=== PATIENT | male | born 1980 | race American Indian/Alaskan Native ===

== ENCOUNTER 2024-09-16 15:17 | Inpatient (IN) | payer OTHER, MEDICAID, SELFPAY ==
[2024-09-16] VITALS (7 sets, daily range): BP systolic 113–137; BP diastolic 63–83; PULSE 56–60; RESP 15–18; TEMP 36.4–36.8; O2SAT 95–96; BMI 34.7; BMI 35.4
--- NOTE | 2024-09-16 15:34 | PC.NURSE ---
BIBA; per report, pt coming in for vomiting blood x1 hour; pt states he was coughing when he filled the sink with red blood. Pt has hx of esophageal varices and had bands placed 5 months ago. Pt also has hx of CHF. Pt connected to monitors at this time.
[2024-09-16 16:20] LABS: Basophils # (Auto) 0.1 Thou/mm3 (0.0-0.2); Basophils % (Auto) 1 % (0-2.5); Eosinophils # (Auto) 0.5 Thou/mm3 (0.0-0.5); Eosinophils % (Auto) 9 % (0-10); Hematocrit 38.1 % (41.0-53.0); Immature Granulocytes % (Auto) 0 % (0-0); Immature Granulocytes Auto 0.01 Thou/mm3 (0.00-0.00); Lymphocytes # (Auto) 1.6 Thou/mm3 (1.0-4.8); Lymphocytes % (Auto) 31 % (10-50); Mean Corpuscular HGB Conc 34.1 g/dl (31.0-37.0); Mean Corpuscular Hemoglobin 28.4 pg (25.0-35.0); Mean Corpuscular Volume 83 fL (80-100); Monocytes # (Auto) 0.5 Thou/mm3 (0.0-0.8); Monocytes % (Auto) 10 % (0-12); Neutrophils # (Auto) 2.6 Thou/mm3 (1.8-7.7); Neutrophils % (Auto) 49 % (37-80); Nucleated Red Blood Cell % 0 /100 WBC (0); Platelet Count 150 Thou/mm3 (140-440); RDW Standard Deviation 46.2 fL (35.1-43.9); Red Blood Count 4.58 Miln/mm3 (4.50-5.90); White Blood Count 5.3 Thou/mm3 (3.8-10.6)
[2024-09-16 16:38] LABS: INR 1.2 (0.9-1.3); Partial Thromboplastin Time 31.7 Seconds (22.0-36.0)
[2024-09-16] MEDS: PANTOPRAZOLE/NS 80MG IV PREMIX 80 MG/100 ML BAG 400 MG IV (16:38)
[2024-09-16] MEDS: cefTRIAXone/D5w 1gm IV premix 50 ML IV (16:40)
[2024-09-16 16:41] LABS: Alanine Aminotransferase 25 U/L (10-49); Albumin, Serum 4.3 gm/dL (3.5-5.0); Albumin/Globulin Ratio 1.2 (1.2-2.2); Alkaline Phosphatase 130 U/L (46-116); Anion Gap 10 (7-16); Aspartate Amino Transferase 47 U/L (0-34); BUN/Creatinine Ratio 13 Ratio (12-20); Bilirubin,Total 1.4 mg/dL (0.3-1.2); Blood Urea Nitrogen 20 mg/dL (9-23); Calcium 9.5 mg/dL (8.3-10.6); Calcium (Corrected) 9.5 mg/dL (8.5-10.1); Carbon Dioxide 22.7 mMol/L (20.0-31.0); Chloride 107 mMol/L (98-107); Creatinine (Component) 1.6 mg/dL (0.6-1.3); Estimated Creatinine Clearance 68.7 mL/min (>60); Globulin 3.7 gm/dL (2.3-3.5); Glucose 97 mg/dL (74-106); Osmolality,Calculated 282 (275-295); Potassium 3.7 mMol/L (3.4-5.1); Sodium 140 mMol/L (136-145); eGFR 54 See Note
--- NOTE | 2024-09-16 16:48 | PD.EDGIBLD ---
ED GI Bleed RME/HPI General Chief complaint: GI Bleed Stated complaint: VOMITING BLOOD Time Seen by Provider: 09/16/24 15:44 Arrival date/time: 09/16/24 15:17 RME / HPI RME / HPI Narrative: 44 y/o known esophageal varices first and most recent banding was in April [address] Orourke who presents with spontaneous hiccup/cough this was followed up with a brisk amount of bright red blood. He states that since bleeding is decreased but initially he did feel the bottom of the sink and here has bruise about 10% of a blue emesis bag. He denies abdominal pain. He denies melena or bright red blood per rectum. Related Data Home Medications ?Medication ?Instructions ?Recorded ?Confirmed carvedilol 6.25 mg tablet (Coreg) 6.25 mg PO BID #60 tabs 08/09/16 07/15/24 furosemide 20 mg tablet (Lasix) 20 mg PO QAM PRN Edema 05/08/24 07/15/24 hydroxyzine HCl 25 mg tablet 25 mg PO QID 05/08/24 07/15/24 metoclopramide HCl 5 mg tablet 5 mg PO 4XD 05/08/24 07/15/24 pantoprazole 40 mg tablet,delayed 40 mg PO QDAY 05/08/24 07/15/24 release propranolol 10 mg tablet 10 mg PO 3XD 05/08/24 07/15/24 triamcinolone acetonide 0.5 % See Rx Instructions .Route .COMPLEX 05/08/24 07/15/24 topical ointment cholestyramine (with sugar) 4 gram 1 ea PO QDAY 07/15/24 07/15/24 powder for susp in a packet ferrous sulfate 325 mg (65 mg 325 mg PO QDAY 07/15/24 07/15/24 iron) tablet,delayed release gabapentin 300 mg capsule 300 mg PO HS 07/15/24 07/15/24 venlafaxine 37.5 mg 37.5 mg PO QDAY 07/15/24 07/15/24 capsule,extended release 24 hr Allergies Allergy/AdvReac Type Severity Reaction Status Date / Time No Known Allergies Allergy Verified 07/15/24 10:11 Review of Systems Review of Systems Systems Reviewed: All systems reviewed, normal except as documented ED Exam Narrative Physical exam: GENERAL APPEARANCE: AxOx4, generally well-appearing, no acute distress. HEENT: NC, AT. MMM. EOMI, clear conjunctiva, oropharynx clear. NECK: Supple without lymphadenopathy. No stiffness or restricted ROM. HEART: Normal rate and regular rhythm, normal S1/S1, no m/r/g LUNGS: CTAB, moving air well. No crackles or wheezes are heard. ABDOMEN: Soft, nontender, nondistended with good bowel sounds heard. BACK: No midline C/T/L spine pain or deformity, No CVAT, no obvious deformity. EXTREMITIES: Without cyanosis, clubbing or edema. MUSCULOSKELETAL: FROM of all major joints, no chest tenderness NEUROLOGICAL: Grossly nonfocal. Alert and oriented, moving all 4 extremities. CN not formally tested but appear grossly intact. Observed to ambulate with normal gait. Skin: Warm and dry without any rash. Course Quality Measures none Orders Category Date Time Status Consult to Gastroenterology Stat Cons 09/16/24 15:53 Ordered CBC Stat Lab 09/16/24 15:40 Completed CMP [Comprehensive Metabolic Panel] Stat Lab 09/16/24 15:40 Completed Partial Thromboplastin Time Stat Lab 09/16/24 15:40 Completed Prothrombin Time with INR Stat Lab 09/16/24 15:40 Completed Type and Screen Stat Lab 09/16/24 15:40 Received Octreotide Acet Inj [SandoSTATIN Inj] Med 09/16/24 15:58 Discontinued 50 mcg IV X1 ONE Pantoprazole/Ns 80Mg IV Premix [Protonix/NS 80mg IV Med 09/16/24 15:59 Active Premix] 80 mg in 100 ml IV Q10H Pantoprazole/Ns 80Mg IV Premix [Protonix/NS 80mg IV Med 09/16/24 15:59 Discontinued Premix] 80 mg in 100 ml IV X1 Sodium Chloride 0.9% [Ns] 100 ml Med 09/16/24 15:59 Active Octreotide Acet Inj [SandoSTATIN Inj] 1,000 mcg IV 50 mcg/hr cefTRIAXone/D5w 1gm IV premix [Rocephin/D5w 1gm IV Med 09/16/24 15:58 Discontinued premix] 50 ml IV X1 Vital Signs Vital signs: Vital Signs Temperature 97.8 F 09/16/24 15:25 Pulse Rate 59 L 09/16/24 15:25 Respiratory Rate 16 09/16/24 15:25 Blood Pressure 137/83 H 12/05/24 15:25 Pulse Oximetry (%) 96 09/16/24 15:25 Oxygen Delivery Method Room Air 09/16/24 15:25 SpO2 96% on room air, patient is not hypoxic GI Bleed MDM Narrative MDM Narrative:: Mr. Negro presents to the emergency department with hematemesis in the setting of having known esophageal varices. This is concerning for catastrophic bleeding as esophageal varices would be consistent with having portal hypertension. As a result I feel he would benefit from an admission with aggressive treatment to decrease portal pressures including IV Sandostatin and also decrease gastric acid secretion with proton pump inhibitors. Case was discussed with gastroenterology who agrees with this plan and will plan for EGD tomorrow. Laboratory testing was sent primarily to determine the extent of bleeding, and returned with a normal hemoglobin at 13. Remainder labs were noncontributory. In review of source of his portal hypertension patient does admit to cirrhosis secondary to excessive alcohol consumption in the past. He states he is been sober since the beginning of the year when he was diagnosed with cirrhosis and portal hypertension. Patient data External records reviewed:: [facility] previous records Clinical information provided by:: patient Social determinants that could affect healthcare access:: none Patient has the following chronic illnesses:: Cirrhosis How is presenting disease/condition affected by chronic disease/condition?: caused by Evaluation data The following diagnostics were reviewed and interpreted by me:: lab results Lab and/or radiology exams considered but not ordered:: None Interpretation Summary: As per narrative Medications / Prescriptions Medications or Prescriptions considered but not ordered:: None Medication administrations:: Medication Administration History Pantoprazole Sodium (Protonix/Ns 80mg Iv Premix) 80 mg in 100 mls @ 10 mls/hr IV Q10H JUAN Stop: 09/19/24 13:58 Last Admin: 09/16/24 16:53 Dose: 10 mls/hr Documented By: Octreotide Acetate 1,000 mcg/ (Sodium Chloride) 102 mls @ 5.1 mls/hr IV .Q20H JUAN; Protocol Stop: 09/21/24 15:59 Last Admin: 09/16/24 17:07 Dose: 50 mcg/hr, 5.1 mls/hr Documented By: Discontinued Medications Pantoprazole Sodium (Protonix/Ns 80mg Iv Premix) 80 mg in 100 mls @ 400 mls/hr IV X1 ONE Stop: 09/16/24 16:13 Last Infusion: 09/16/24 16:53 Dose: Infused Documented By: Admin: 09/16/24 16:38 Dose: 400 mls/hr Documented By: DEVAUGHN Ceftriaxone Sodium/Dextrose (Rocephin/D5w 1gm Iv Premix) 50 mls @ 100 mls/hr IV X1 ONE Stop: 09/16/24 16:27 Last Infusion: 09/16/24 17:04 Dose: Infused Documented By: [facility] Admin: 09/16/24 16:40 Dose: 100 mls/hr Documented By: DEVAUGHN Octreotide Acetate (Octreotide Acet Inj 50 Mcg/Ml Vial) 50 mcg IV X1 ONE Stop: 09/16/24 15:59 Last Admin: 09/16/24 17:06 Dose: 50 mcg Documented By: DEVAUGHN Above Consultations Consultation(s) initiated? (list below): Yes Consultation #1 (Physician, Specialty, Details): Gastroenterology, Dr. Orourke, case was discussed at length and recommends IV Sandostatin, proton pump inhibitor, with plan for EGD tomorrow morning. Time: 04:30 Diagnosis GI bleed differential diagnosis: esophageal varices, gastritis, Ita-Delgado syndrome and Upper gastrointestinal hemorrhage Most likely diagnosis given after review of the tests above:: See below Admission Indicated Admission indicated?: indicated Admission Request Was there a request for admission?: Yes Admission Attestation Admission request attestation: Discussed case with [Dr. Booth] from Hospitalist service regarding admission. Discussed patients ED course, exam findings, labs, and radiology results. The Hospitalist [agrees] to accept the patient for admission. Disposition Plan Disposition Plan: Admit Critical Care Time Critical Care Time Critical Care Time: Yes Total Critical Care Time (min.): 35 Attestation: Excluding billable procedures for the rapid response, analysis, management, treatment, deliberation with specialist, and documentation to prevent the very possible risk of cardiovascular decompensation or . Discharge Plan Plan Patient Disposition: Admit Acute Care w/in Hospital Prescriptions/Referrals Prescriptions/Med Rec: No Action carvedilol [Coreg] 6.25 MG tablet 6.25 mg PO BID Qty: 60 furosemide [Lasix] 20 mg Tablet 20 mg PO QAM PRN (Reason: Edema) triamcinolone acetonide 0.5 % ointment See Rx Instructions .ROUTE .COMPLEX Patient Comments: APPLY THIN LAYER TOPICALLY TO THE AFFECTED AREA TWICE DAILY Rx Instructions: apply a thin layer topically to the affected area twice a day propranolol 10 mg tablet 10 mg PO 3XD Patient Comments: TAKE 1 TABLET BY MOUTH THREE TIMES DAILY metoclopramide HCl 5 mg tablet 5 mg PO 4XD Patient Comments: TAKE 1 TABLET BY MOUTH 30 MINUTES BEFORE MEALS AND AT BEDTIME pantoprazole 40 mg tablet,delayed release (DR/EC) 40 mg PO QDAY Patient Comments: TAKE 1 TABLET BY MOUTH EVERY DAY hydroxyzine HCl 25 mg tablet 25 mg PO QID Hold Instructions: Resume on 07/16/24. Patient Comments: TAKE 1 TABLET BY MOUTH EVERY 4 TO 6 HOURS NEEDED FOR ITCHING venlafaxine 37.5 mg capsule,extended release 24hr 37.5 mg PO QDAY Patient Comments: TAKE 1 CAPSULE BY MOUTH EVERY DAY WITH FOOD gabapentin 300 mg capsule 300 mg PO HS Patient Comments: TAKE 1 CAPSULE BY MOUTH EVERY NIGHT AT BEDTIME ferrous sulfate 325 mg (65 mg iron) tablet,delayed release (DR/EC) 325 mg PO QDAY Patient Comments: TAKE 1 TABLET BY MOUTH TWICE A DAY WITH FOOD AND ORANGE JUICE cholestyramine (with sugar) 4 gram powder in packet 1 ea PO QDAY Patient Comments: DISSOLVE 1 PACKET IN 2-6 OZ OF WATER OR NONCARBONATED AND DRINK BY MOUTH TWICE DAILY BEFORE MEALS Referrals: Johana Blakely MD [Primary Care Provider] - In 1 week Problem List Clinical Impression: GI bleed, Cirrhosis Patient/Caregiver Discharge Instructions Print Language: Greenlandic Stand Alone Forms: [facility] Award Info., Patient Portal Info Letter
[2024-09-16] MEDS: PANTOPRAZOLE/NS 80MG IV PREMIX 80 MG/100 ML BAG 10 MG IV (16:53)
--- NOTE | 2024-09-16 17:05 | PC.NURSE ---
hospitalist in to talk with pt
[2024-09-16] MEDS: OCTREOTIDE ACET INJ 50 mCg/ML VIAL IV (17:06)
[2024-09-16] MEDS: OCTREOTIDE ACET INJ 1,000 MCG in SODIUM CHLORIDE 0.9% 100 ML 5.1 MCG IV (17:07)
--- NOTE | 2024-09-16 17:48 | ESHP_ITS ---
<Statement entered by Geoffrey Servin MD - 09/17/24 07:53> Patient was seen and examined by me personally. I agree with most of the assessment and plan as discussed with the mechanical intern physician, and my attending, Dr. De Jesus. 44y/o M with cirrhosis, esophageal varices s/p banding in April 2024 who presents with hematemesis after a coughing episode. Patient denies drinking alcohol or other substance abuse. Vitals, labs reviewed. Hgb stable at 13, with no further bleeding. Type/Screen done. GI consulted, recommends protonix/octreotide, and EGD in morning. Patient NPO. Geoffrey Servin MD, PGY-3 Documentation for date of: 09/16/24 HPI History of Present Illness Chief complaint: Hematemesis History of present illness: Patient is well-known to me, seen him recently in April A 44 yr old male with a past medical history of cirrhosis s/p variceal ligation in 04/2024, CKD, ex alcohol, stopped 6 months ago per patient and ex methamphetamine abuse came to the hospital with chief complaints of blood in the vomitus. Patient was apparently normal till this afternoon. Patient was sitting and then suddenly noted cough and irritation in the abdomen. Later he vomited around 50 mL of fresh bright red blood as described by the patient. Denies fever, abdominal pain, nausea, shortness of breath, pedal edema, abdominal distention. Stated that he abstained from the alcohol using his home medications, did not remember the name of the medications. Patient immediately came to the ED and still complaining of small amount of hematemesis. Denies blood or blackish discoloration of stools. Noted vomitus in the vomitus bag that showed bright red blood. ED Course: -Initial vitals were BP 137/83 mmHg, pulse rate 59/min, respiratory rate 16/min, temperature 97.8 ?F, SpO2 96% with room air. Physical examination remains unremarkable. -Labs significant for WBC 5.3, Hb 13, platelets 150, INR 1.2, APTT 31.7, sodium 140, potassium 3.7, BUN 20, creatinine 1.6, total bilirubin 1.4, AST 47, ALT 25, ALP 130. -In the ED, patient was given pantoprazole and started on octreotide drip -Patient was admitted for upper GI bleed secondary to esophageal varices due to decompensated liver disease Past medical history: Cirrhosis, s/p variceal ligation, CKD Past surgical history:Left knee surgery in view of ACL tear Social history: Stopped alcohol and meth abuse, still smoking 1 to 2 cigarettes/day Allergy history: No known allergies Review of Systems Constitutional Comments: Constitutional: No Weight Change, No Fever, No Chills, No Night Sweats, No Fatigue, No Malaise ENT/Mouth: No Hearing Changes, No Ear Pain, No Nasal Congestion, No Sinus Pain, No Hoarseness, No sore throat, No Rhinorrhea, No Swallowing Difficulty Eyes: No Eye Pain, No Swelling, No Redness, No Foreign Body, No Discharge, No Vision Changes Cardiovascular: No Chest Pain, No SOB, No PND, No Dyspnea on Exertion, No Orthopnea, No Edema, No Palpitations Respiratory: No Cough, No Sputum, No Wheezing, No Dyspnea Gastrointestinal: No Nausea, Vomiting, No Diarrhea, No Constipation, No Pain, No Heartburn, No Anorexia, No Dysphagia, No Hematochezia, No Melena, No Flatulence, No Jaundice Genitourinary: No Dysuria, No Urinary Frequency, No Hematuria, No Urinary Incontinence, No Urgency, No Flank Pain, No Urinary Flow Changes, No Hesitancy Musculoskeletal: No Arthralgias, No Myalgias, No Joint Swelling, No Joint Stiffness, No Back Pain, No Neck Pain, No Injury History Skin: No Skin Lesions, No Pruritis Neuro: No Weakness, No Numbness, No Paresthesias, No Loss of Consciousness, No Syncope, No Dizziness, No Headache, No Coordination Changes, No Recent Falls Exam Vital Signs Temp Pulse Resp BP Pulse Ox O2 Del Method 98.2 F 57 L 15 130/82 95 Room Air 09/16/24 17:30 09/16/24 17:30 09/16/24 17:30 09/16/24 17:30 09/16/24 17:30 09/16/24 17:30 Narrative Exam General: Awake and in no acute distress. HEENT: Normocephalic, atraumatic, mucous membranes moist. Heart: Regular rate and rhythm, no murmurs. Lungs: Clear to auscultation with no wheezing or crackles. Abdomen: Soft, nondistended, nontender, positive bowel sounds. ?No guarding or rebound tenderness. Neurologic: Alert and oriented x3, no gross neurological deficit, and patient able to move all 4 extremities. Extremities: No edema. Skin: No rash or ecchymoses. Results: Labs 09/17/24 05:22 09/17/24 05:22 Labs: Short CBC 09/16/24 Range/Units 15:40 WBC 5.3 (3.8-10.6) Thou/mm3 Hgb 13.0 L (13.5-16.0) g/dL Hct 38.1 L (41.0-53.0) % Plt Count 150 (140-440) Thou/mm3 BMP 09/16/24 15:40 Sodium 140 Potassium 3.7 Chloride 107 Carbon Dioxide 22.7 BUN 20 Creatinine 1.6 H Glucose 97 Calcium 9.5 Liver Function 09/16/24 Range/Units 15:40 Total Bilirubin 1.4 H (0.3-1.2) mg/dL AST 47 H (0-34) U/L ALT 25 (10-49) U/L Alkaline Phosphatase 130 H (46-116) U/L Albumin 4.3 (3.5-5.0) gm/dL Quality Measures Quality Measures none Medications Home Medications and Allergies Home Medications ?Medication ?Instructions ?Recorded ?Confirmed ?Type carvedilol 6.25 mg tablet (Coreg) 6.25 mg PO BID #60 tabs 08/09/16 07/15/24 History furosemide 20 mg tablet (Lasix) 20 mg PO QAM PRN Edema 05/08/24 07/15/24 History hydroxyzine HCl 25 mg tablet 25 mg PO QID 05/08/24 07/15/24 History metoclopramide HCl 5 mg tablet 5 mg PO 4XD 05/08/24 07/15/24 History pantoprazole 40 mg tablet,delayed 40 mg PO QDAY 05/08/24 07/15/24 History release propranolol 10 mg tablet 10 mg PO 3XD 05/08/24 07/15/24 History triamcinolone acetonide 0.5 % See Rx Instructions .Route .COMPLEX 05/08/24 07/15/24 History topical ointment cholestyramine (with sugar) 4 gram 1 ea PO QDAY 07/15/24 07/15/24 History powder for susp in a packet ferrous sulfate 325 mg (65 mg 325 mg PO QDAY 07/15/24 07/15/24 History iron) tablet,delayed release gabapentin 300 mg capsule 300 mg PO HS 07/15/24 07/15/24 History venlafaxine 37.5 mg 37.5 mg PO QDAY 07/15/24 07/15/24 History capsule,extended release 24 hr Allergies Allergy/AdvReac Type Severity Reaction Status Date / Time No Known Allergies Allergy Verified 07/15/24 10:11 Visit Medications Acetaminophen (Acetaminophen 325 Mg Tablet) 650 mg PO Q6H PRN PRN Reason: Fever >101.5 Stop: 10/16/24 17:20 Pantoprazole Sodium (Protonix/Ns 80mg Iv Premix) 80 mg in 100 mls @ 10 mls/hr IV Q10H JUAN Stop: 09/19/24 13:58 Last Admin: 09/16/24 16:53 Dose: 10 mls/hr Octreotide Acetate 1,000 mcg/ (Sodium Chloride) 102 mls @ 5.1 mls/hr IV .Q20H JUAN; Protocol Stop: 09/21/24 15:59 Last Admin: 09/16/24 17:07 Dose: 50 mcg/hr, 5.1 mls/hr Lactulose (Lactulose Syrup 20 Gm/30 Ml Udc) 20 gm PO X1 PRN; Protocol PRN Reason: CONSTIPATION Stop: 10/16/24 17:20 Pantoprazole Sodium (Pantoprazole Inj 40 Mg Vial) 40 mg IVP QDAY JUAN Stop: 10/17/24 08:59 Discontinued Medications Pantoprazole Sodium (Protonix/Ns 80mg Iv Premix) 80 mg in 100 mls @ 400 mls/hr IV X1 ONE Stop: 09/16/24 16:13 Last Infusion: 09/16/24 16:53 Dose: Infused Ceftriaxone Sodium/Dextrose (Rocephin/D5w 1gm Iv Premix) 50 mls @ 100 mls/hr IV X1 ONE Stop: 09/16/24 16:27 Last Infusion: 09/16/24 17:04 Dose: Infused Octreotide Acetate (Octreotide Acet Inj 50 Mcg/Ml Vial) 50 mcg IV X1 ONE Stop: 09/16/24 15:59 Last Admin: 09/16/24 17:06 Dose: 50 mcg Assessment & Plan Plan A 44 yr old male with a past medical history of cirrhosis s/p variceal ligation in 04/2024, CKD, ex alcohol, stopped 6 months ago per patient and ex methamphetamine abuse came to the hospital with chief complaints of blood in the vomitus. # History of decompensated alcoholic liver disease # History of esophageal varices-s/p variceal ligation # Upper GI bleed, hematemesis -Patient has a history of decompensated alcoholic liver disease with esophageal varices s/p variceal ligation in 04/2024 -Last hospital admission was in April 2024 for similar complaints. -Patient presented to the hospital with complaints of salena blood in the vomitus. -Denies abdominal distention, melena, hematochezia, fever, abdominal pain. -Reported that he is compliant with his home medications, but did not remember the name of medications. -In the ED, blood pressure is 137/83 mmHg, pulse rate 59 bpm, respiratory rate 16/min, temperature 97.8 ?F, SpO2 96% with room air -Hemoglobin is 13 at the time of presentation, platelet count is 150. INR is 1.2, APTT is 31.7, total bilirubin is 1.4, AST 47, ALT 25 -In the ED, patient was started on octreotide drip and pantoprazole drip Plan -Will continue octreotide and pantoprazole drip for now. -N.p.o. since midnight -Consulted Dr. Orourke and will appreciate his recommendations. -Will continue to monitor vitals and hemoglobin -Crossmatch showed O- blood # History of CKD, stage IIIa -Patient has a known history of chronic kidney disease -GFR is maintained between 55-60. -Patient is still at his normal baseline. -Denies changes in urine output. Plan -Will continue to monitor renal functions -Will renally dose medication and avoid nephrotoxic medications # Chronic smoker -Patient was smoking for about 10 to 15 years from now -Currently smoking 1 to 2 cigarettes/day -Counseled regarding the smoking cessation Hospital Maintenance: Dispo: Med/tele DVT ppx: SCD GI ppx: Protonix Diet: N.p.o. since midnight IV lines: Peripheral Code status: Full code Patient plan of care was discussed with the attending physician, Dr. De Jesus and senior resident Dr. Malathi Voss, PGY1 Attending Provider Attestation/Addendum I reviewed labs, imaging, EKG, home medications and prior available records. Face to face evaluation was performed by me. I have personally examined the patient and discussed assessment and plan with the IM team. I reviewed the resident note and agree with the plan with exceptions as below. 44-year-old male with history of alcoholic liver cirrhosis who presented with a chief complaint of hematemesis. He was found to have upper GI bleed. Upper GI bleed: In the setting of history of alcoholic cirrhosis. Started IV Protonix and IV octreotide. Consulted GI for EGD/colonoscopy. N.p.o. after midnight. Monitor H&H. Alcoholic cirrhosis: No recent alcohol drinking. Resume home medications. Outpatient follow-up with hepatology. CKD stage IIIa: Creatinine is close to baseline. Monitor kidney function. Avoid nephrotoxins. Renally dosed medications.
--- NOTE | 2024-09-16 18:03 | PC.NURSE ---
Dr. Kelechi De Jesus notified that pt's FSBS is 52 at this time; pt A&Ox4 GCS 15; per Dr. De Jesus, give pt orange juice and recheck FSBS in 30 minutes. Pt given orange juice at this time.
--- NOTE | 2024-09-16 20:33 | PC.NURSE ---
REPORT CALLED TO TRESSA BUSBY ALL QUESTIONS ASKED AND ANSWERED. PATIENT TRANSFERRED TO FLOOR BY STAFF. NO DISTRESS NOTED AT TRANSFER.
--- NOTE | 2024-09-16 20:42 | PD.IMCONS ---
HPI Data of Consult Requesting Physician: Nixon De Jesus MD Primary Care Provider: Johana Blakely MD Consult Narrative Reason for consult: Hematemesis History of present illness: 44 years old male admitted to the hospital with bout of hematemesis Initial admitting hemoglobin hematocrit 11 October 2013 0.0 and 38.1 with a platelet count 250,000 and a pro time INR 1.2 Total bilirubin is 1.4 AST ALT 47 and 25 and alk phos of 130 BUN/creatinine is 20 and 1.6 Patient has had alcohol induced chronic liver disease cirrhosis with hepatomegaly liver size 20.3 cm with fatty liver This ultrasound was done on 04/15/2024 cc:: cc: Nixon De Jesus MD Review of Systems Review of Systems Systems Reviewed: All systems reviewed, normal except as documented Past Medical History Surgical History OTHER SURGICAL HX: As in the history of present illness Meds Home Medications and Allergies Home Medications ?Medication ?Instructions ?Recorded ?Confirmed ?Type carvedilol 6.25 mg tablet (Coreg) 6.25 mg PO BID #60 tabs 08/09/16 07/15/24 History furosemide 20 mg tablet (Lasix) 20 mg PO QAM PRN Edema 05/08/24 07/15/24 History hydroxyzine HCl 25 mg tablet 25 mg PO QID 05/08/24 07/15/24 History metoclopramide HCl 5 mg tablet 5 mg PO 4XD 05/08/24 07/15/24 History pantoprazole 40 mg tablet,delayed 40 mg PO QDAY 05/08/24 07/15/24 History release propranolol 10 mg tablet 10 mg PO 3XD 05/08/24 07/15/24 History triamcinolone acetonide 0.5 % See Rx Instructions .Route .COMPLEX 05/08/24 07/15/24 History topical ointment cholestyramine (with sugar) 4 gram 1 ea PO QDAY 07/15/24 07/15/24 History powder for susp in a packet ferrous sulfate 325 mg (65 mg 325 mg PO QDAY 07/15/24 07/15/24 History iron) tablet,delayed release gabapentin 300 mg capsule 300 mg PO HS 07/15/24 07/15/24 History venlafaxine 37.5 mg 37.5 mg PO QDAY 07/15/24 07/15/24 History capsule,extended release 24 hr Allergies Allergy/AdvReac Type Severity Reaction Status Date / Time No Known Allergies Allergy Verified 07/15/24 10:11 Exam Vital Signs Temp Pulse Resp BP Pulse Ox O2 Del Method 97.7 F 58 L 16 116/74 96 Room Air 09/16/24 18:08 09/16/24 20:01 09/16/24 20:01 09/16/24 20:01 09/16/24 20:01 09/16/24 20:01 Constitutional Comments: Alert oriented Routine Respiratory Exam Comments: Normal to auscultation Routine Abdominal Exam Comments: Soft nontender Results Labs 09/16/24 15:40 09/16/24 15:40 Labs: Short CBC 09/16/24 Range/Units 15:40 WBC 5.3 (3.8-10.6) Thou/mm3 Hgb 13.0 L (13.5-16.0) g/dL Hct 38.1 L (41.0-53.0) % Plt Count 150 (140-440) Thou/mm3 BMP 09/16/24 15:40 Sodium 140 Potassium 3.7 Chloride 107 Carbon Dioxide 22.7 BUN 20 Creatinine 1.6 H Glucose 97 Calcium 9.5 Liver Function 09/16/24 Range/Units 15:40 Total Bilirubin 1.4 H (0.3-1.2) mg/dL AST 47 H (0-34) U/L ALT 25 (10-49) U/L Alkaline Phosphatase 130 H (46-116) U/L Albumin 4.3 (3.5-5.0) gm/dL Assessment and Plan Additional Assessment & Plan Additional Plan: # Acute upper GI bleed in the form of hematemesis in the setting of cirrhotic liver disease due to alcohol Plan Octreotide infusion at 50 mcg/h IV Protonix N.p.o. Serial CBC Consent obtained for fiberoptic esophagogastroduodenoscopy with possible therapeutic intervention possible biopsy under intravenous moderate sedation scheduled for tomorrow Thank you very much for the opportunity to participate in the care of this patient
[2024-09-17] VITALS (15 sets, daily range): BP systolic 116–154; BP diastolic 62–91; PULSE 48–59; RESP 12–19; TEMP 36.2–36.7; O2SAT 94–100
[2024-09-17] MEDS: PANTOPRAZOLE/NS 80MG IV PREMIX 80 MG/100 ML BAG 10 MG IV ×3 (01:44→23:10)
[2024-09-17] MEDS: DEXTROSE 50%-WATER INJ 50 ML SYRINGE 25 ML IV (01:45)
[2024-09-17 05:49] LABS: Basophils # (Auto) 0.1 Thou/mm3 (0.0-0.2); Basophils % (Auto) 1 % (0-2.5); Eosinophils # (Auto) 0.5 Thou/mm3 (0.0-0.5); Eosinophils % (Auto) 10 % (0-10); Hematocrit 38.3 % (41.0-53.0); Hemoglobin 12.7 g/dL (13.5-16.0); Immature Granulocytes % (Auto) 0 % (0-0); Immature Granulocytes Auto 0.01 Thou/mm3 (0.00-0.00); Lymphocytes # (Auto) 2.1 Thou/mm3 (1.0-4.8); Lymphocytes % (Auto) 37 % (10-50); Mean Corpuscular HGB Conc 33.2 g/dl (31.0-37.0); Mean Corpuscular Volume 85 fL (80-100); Monocytes # (Auto) 0.6 Thou/mm3 (0.0-0.8); Monocytes % (Auto) 10 % (0-12); Neutrophils # (Auto) 2.5 Thou/mm3 (1.8-7.7); Neutrophils % (Auto) 43 % (37-80); Nucleated Red Blood Cell % 0 /100 WBC (0); Platelet Count 136 Thou/mm3 (140-440); RDW Standard Deviation 46.2 fL (35.1-43.9); Red Blood Count 4.53 Miln/mm3 (4.50-5.90); White Blood Count 5.7 Thou/mm3 (3.8-10.6)
[2024-09-17 06:02] LABS: Glucose Estimated Average 111 mg/dL (80-131); Hemoglobin A1C 5.5 % Hgb (4.8-6.0)
[2024-09-17 06:37] LABS: Alanine Aminotransferase 23 U/L (10-49); Albumin, Serum 4.1 gm/dL (3.5-5.0); Albumin/Globulin Ratio 1.1 (1.2-2.2); Alkaline Phosphatase 111 U/L (46-116); Anion Gap 8 (7-16); Aspartate Amino Transferase 42 U/L (0-34); BUN/Creatinine Ratio 13 Ratio (12-20); Blood Urea Nitrogen 20 mg/dL (9-23); Calcium 9.4 mg/dL (8.3-10.6); Calcium (Corrected) 9.4 mg/dL (8.5-10.1); Carbon Dioxide 22.1 mMol/L (20.0-31.0); Chloride 108 mMol/L (98-107); Creatinine (Component) 1.5 mg/dL (0.6-1.3); Estimated Creatinine Clearance 74.1 mL/min (>60); Globulin 3.6 gm/dL (2.3-3.5); Glucose 99 mg/dL (74-106); Osmolality,Calculated 278 (275-295); Potassium 3.8 mMol/L (3.4-5.1); Sodium 138 mMol/L (136-145); Total Protein 7.7 gm/dL (5.7-8.2); eGFR 59 See Note
[2024-09-17] MEDS: PANTOPRAZOLE INJ 40 MG VIAL IVP (09:53)
--- NOTE | 2024-09-17 10:03 | PC.SS ---
Patient is alert/oriented. He was admitted for gi bleed. Patient states he resides with family on the [facility]. Patient is independent with ADL's. Patient is npo for endoscopy scheduled later today. Patient follows up with [facility] with Dr. Jackman and Dr. Blakely. Last appt. was 09/16/2024. Discharge address: [address] [place] [address]. Family will transport upon discharge. No further d/c needs. is alt medical decision maker; Nereyda Negro,
[2024-09-17] MEDS: OCTREOTIDE ACET INJ 1,000 MCG in SODIUM CHLORIDE 0.9% 100 ML 5.1 MCG IV (11:50)
--- NOTE | 2024-09-17 11:52 | ESPR_ITS ---
Documentation for date of: 09/17/24 Subjective Subjective Interval history: Patient was seen and examined bedside. Patient was on n.p.o. since midnight and denied further episodes of hematemesis. Pending endoscopy by Dr. Orourke which was scheduled later in the afternoon. Exam Vital Signs Temp Pulse Resp BP Pulse Ox O2 Del Method 98.0 F 59 L 19 118/72 96 Room Air 09/17/24 07:46 09/17/24 07:46 09/17/24 07:46 09/17/24 07:46 09/17/24 07:46 09/17/24 07:46 Narrative Exam General: Awake and in no acute distress. HEENT: Normocephalic, atraumatic, mucous membranes moist. Heart: Regular rate and rhythm, no murmurs. Lungs: Clear to auscultation with no wheezing or crackles. Abdomen: Soft, nondistended, nontender, positive bowel sounds. ?No guarding or rebound tenderness. Neurologic: Alert and oriented x3, no gross neurological deficit, and patient able to move all 4 extremities. Extremities: No edema. Skin: No rash or ecchymoses. Objective Labs 09/18/24 04:25 09/18/24 04:25 Labs: Laboratory Results - last 24 hr 09/16/24 09/17/24 15:40 05:22 WBC 5.3 5.7 RBC 4.58 4.53 Hgb 13.0 L 12.7 L Hct 38.1 L 38.3 L MCV 83 85 MCH 28.4 28.0 MCHC 34.1 33.2 RDW Std Deviation 46.2 H 46.2 H Plt Count 150 136 L Neut % (Auto) 49 43 Lymph % (Auto) 31 37 [place] % (Auto) 10 10 Eos % (Auto) 9 10 Baso % (Auto) 1 1 Neut # (Auto) 2.6 2.5 Lymph # (Auto) 1.6 2.1 [place] # (Auto) 0.5 0.6 Eos # (Auto) 0.5 0.5 Baso # (Auto) 0.1 0.1 Immature Gran # (Auto) 0.01 H 0.01 H Absolute Nucleated RBC 0.00 0.00 Immature Gran % 0 0 Nucleated RBC % 0 0 PT 13.0 H INR 1.2 APTT 31.7 Sodium 140 138 Potassium 3.7 3.8 Chloride 107 108 H Carbon Dioxide 22.7 22.1 Anion Gap 10 8 BUN 20 20 Creatinine 1.6 H 1.5 H Estim Creat Clear Calc 68.7 74.1 eGFR 54 L 59 L BUN/Creatinine Ratio 13 13 Glucose [address] Glu mg/dL 111 Hemoglobin A1c 5.5 Calculated Osmolality 282 278 Calcium 9.5 9.4 Corrected Calcium 9.5 9.4 Total Bilirubin 1.4 H 2.0 H D AST 47 H 42 H ALT 25 23 Alkaline Phosphatase 130 H 111 Total Protein 8.0 7.7 Albumin 4.3 4.1 Globulin 3.7 H 3.6 H Albumin/Globulin Ratio 1.2 1.1 L Blood Type O Positive Antibody Screen NEGATIVE Blood Bank Wristband ID Yes Quality Measures Quality Measures none Assessment & Plan Assessment Current Active Medications: Generic Name Dose Route Start Last Admin Trade Name Freq PRN Reason Stop Dose Admin Acetaminophen 650 mg 09/16/24 17:21 Acetaminophen 325 Mg Tablet PO 10/16/24 17:20 Q6H PRN Fever >101.5 Pantoprazole Sodium 80 mg in 100 mls @ 10 mls/hr 09/16/24 15:59 09/17/24 01:44 Protonix/Ns 80mg Iv Premix IV 09/19/24 13:58 10 mls/hr Q10H JUAN Administration Octreotide Acetate 1,000 mcg/ 102 mls @ 5.1 mls/hr 09/16/24 15:59 09/16/24 17:07 Sodium Chloride IV 09/21/24 15:59 50 mcg/hr .Q20H JUAN 5.1 mls/hr Administration Protocol 50 MCG/HR Lactulose 20 gm 09/16/24 17:21 Lactulose Syrup 20 Gm/30 Ml Udc PO 10/16/24 17:20 X1 PRN CONSTIPATION Protocol Plan A 44 yr old male with a past medical history of cirrhosis s/p variceal ligation in 04/2024, CKD, ex alcohol, stopped 6 months ago per patient and ex methamphetamine abuse came to the hospital with chief complaints of blood in the vomitus. # History of decompensated alcoholic liver disease with portal hypertension # History of esophageal varices-s/p variceal ligation # Upper GI bleed, hematemesis -Patient has a history of decompensated alcoholic liver disease with esophageal varices s/p variceal ligation in 04/2024 -Last hospital admission was in April 2024 for similar complaints. -Patient presented to the hospital with complaints of salena blood in the vomitus. -Denies abdominal distention, melena, hematochezia, fever, abdominal pain. -Reported that he is compliant with his home medications, but did not remember the name of medications. -In the ED, blood pressure is 137/83 mmHg, pulse rate 59 bpm, respiratory rate 16/min, temperature 97.8 ?F, SpO2 96% with room air -Hemoglobin is 13 at the time of presentation, platelet count is 150. INR is 1.2, APTT is 31.7, total bilirubin is 1.4, AST 47, ALT 25 -In the ED, patient was started on octreotide drip and pantoprazole drip Plan -Will continue octreotide and pantoprazole drip for now. -Consulted Dr. Orourke and scheduled for endoscopy this afternoon. -Will continue to monitor vitals and hemoglobin -Crossmatch showed O- blood # History of CKD, stage IIIa -Patient has a known history of chronic kidney disease -GFR is maintained between 55-60. -Patient is still at his normal baseline. -Denies changes in urine output. Plan -Will continue to monitor renal functions -Will renally dose medication and avoid nephrotoxic medications # Chronic smoker -Patient was smoking for about 10 to 15 years from now -Currently smoking 1 to 2 cigarettes/day -Counseled regarding the smoking cessation # Thrombocytopenia -Platelet count is 136 as of 09/17/2024. -Likely due to underlying liver disease. -Will continue to monitor CBC. Hospital Maintenance: Dispo: Med/tele DVT ppx: SCD GI ppx: Protonix Diet: N.p.o. till he undergoes endoscopy IV lines: Peripheral Code status: Full code Patient plan of care was discussed with the attending physician, Dr. De Jesus and senior resident Dr. Nino Voss, PGY1 L Mr Lopez is a 74-year-old male admitted for MrOtilio Wise is a 44-year-old male with past medical history of cirrhosis and band ligation of esophageal varices, due to alcohol use disorder quit 6 months ago, CKD and previous history of methamphetamine use, who is admitted to the hospital for acute hematemesis. He denies any melena/hematochezia or abdominal discomfort. Dr. Orourke is consulted, appreciate recommendations. Patient to be scheduled for EGD today 09/17 for further evaluation and possible ligation if needed. Currently n.p.o., coagulation panel and platelet count fairly within normal limits to undergo procedure. We will continue octreotide drip and pantoprazole until further GI recommendations. Patient examined and case discussed with the team including attending physician. Note reviewed, I agree with the care plan as documented. - Anoop Oneill MD, PGY 2 Attending Provider Attestation/Addendum I reviewed labs, imaging, EKG, home medications and prior available records. Face to face evaluation was performed by me. I have personally examined the patient and discussed assessment and plan with the IM team. I reviewed the resident note and agree with the plan with exceptions as below. 44-year-old male with history of alcoholic liver cirrhosis who presented with a chief complaint of hematemesis. He was found to have upper GI bleed. Upper GI bleed: In the setting of history of alcoholic cirrhosis. Started IV Protonix and IV octreotide. Consulted GI for EGD/colonoscopy. N.p.o. prior to EGD. Monitor H&H. Alcoholic cirrhosis: No recent alcohol drinking. Resume home medications. Outpatient follow-up with hepatology. CKD stage IIIa: Creatinine is close to baseline. Monitor kidney function. Avoid nephrotoxins. Renally dosed medications.
--- NOTE | 2024-09-17 19:20 | SUR.PHASEI ---
received pt and report from TRESSA Newton. Pt asleep at this time but arousable to voice and touch. VSS. HR sergio in th e50's, pt's baseline. no distress noted. [address], no s/s of infiltration or redness noted. will continue to monitor
--- NOTE | 2024-09-17 19:45 | SUR.PHASEI ---
pt recovering well, pt denies any cxp or dizziness, or sob. vss. HR con't to be in the 50's. Pt denies any pain or nausea. Report given to TRESSA Kline
[2024-09-18] VITALS (7 sets, daily range): BP systolic 112–127; BP diastolic 69–86; PULSE 52–70; RESP 17–19; TEMP 36.2–36.8; O2SAT 95–98; BMI 35.3
[2024-09-18 05:49] LABS: Basophils # (Auto) 0.1 Thou/mm3 (0.0-0.2); Basophils % (Auto) 1 % (0-2.5); Eosinophils # (Auto) 0.6 Thou/mm3 (0.0-0.5); Eosinophils % (Auto) 12 % (0-10); Hemoglobin 12.9 g/dL (13.5-16.0); Immature Granulocytes % (Auto) 0 % (0-0); Immature Granulocytes Auto 0.01 Thou/mm3 (0.00-0.00); Lymphocytes # (Auto) 1.7 Thou/mm3 (1.0-4.8); Lymphocytes % (Auto) 34 % (10-50); Mean Corpuscular HGB Conc 33.1 g/dl (31.0-37.0); Mean Corpuscular Volume 85 fL (80-100); Monocytes # (Auto) 0.6 Thou/mm3 (0.0-0.8); Monocytes % (Auto) 12 % (0-12); Neutrophils # (Auto) 2.1 Thou/mm3 (1.8-7.7); Neutrophils % (Auto) 41 % (37-80); Nucleated Red Blood Cell % 0 /100 WBC (0); Platelet Count 135 Thou/mm3 (140-440); RDW Standard Deviation 45.9 fL (35.1-43.9); Red Blood Count 4.61 Miln/mm3 (4.50-5.90)
[2024-09-18 06:23] LABS: Alanine Aminotransferase 21 U/L (10-49); Albumin, Serum 4.1 gm/dL (3.5-5.0); Albumin/Globulin Ratio 1.1 (1.2-2.2); Alkaline Phosphatase 105 U/L (46-116); Anion Gap 11 (7-16); Aspartate Amino Transferase 43 U/L (0-34); BUN/Creatinine Ratio 14 Ratio (12-20); Blood Urea Nitrogen 21 mg/dL (9-23); Calcium 9.5 mg/dL (8.3-10.6); Calcium (Corrected) 9.5 mg/dL (8.5-10.1); Carbon Dioxide 23.2 mMol/L (20.0-31.0); Chloride 105 mMol/L (98-107); Creatinine (Component) 1.5 mg/dL (0.6-1.3); Estimated Creatinine Clearance 74.1 mL/min (>60); Globulin 3.7 gm/dL (2.3-3.5); Glucose 126 mg/dL (74-106); Osmolality,Calculated 282 (275-295); Potassium 3.8 mMol/L (3.4-5.1); Sodium 139 mMol/L (136-145); Total Protein 7.8 gm/dL (5.7-8.2); eGFR 59 See Note
[2024-09-18] MEDS: PANTOPRAZOLE/NS 80MG IV PREMIX 80 MG/100 ML BAG 10 MG IV ×2 (09:46→19:48)
[2024-09-18] MEDS: OCTREOTIDE ACET INJ 1,000 MCG in SODIUM CHLORIDE 0.9% 100 ML 5.1 MCG IV (09:46)
--- NOTE | 2024-09-18 14:08 | ESPR_ITS ---
Documentation for date of: 09/18/24 Subjective Subjective Interval history: Patient status post band ligation of the esophageal varices On octreotide drip Exam Vital Signs Temp Pulse Resp BP Pulse Ox O2 Del Method O2 Flow Rate 97.9 F 61 18 123/69 97 Room Air 2 09/18/24 12:00 09/18/24 12:00 09/18/24 12:00 09/18/24 12:00 09/18/24 12:00 09/18/24 12:00 09/17/24 19:35 Objective Labs 09/19/24 05:19 09/19/24 05:19 Labs: Laboratory Results - last 24 hr 09/18/24 04:25 WBC 5.0 RBC 4.61 Hgb 12.9 L Hct 39.0 L MCV 85 MCH 28.0 MCHC 33.1 RDW Std Deviation 45.9 H Plt Count 135 L Neut % (Auto) 41 Lymph % (Auto) 34 [place] % (Auto) 12 Eos % (Auto) 12 H Baso % (Auto) 1 Neut # (Auto) 2.1 Lymph # (Auto) 1.7 [place] # (Auto) 0.6 Eos # (Auto) 0.6 H Baso # (Auto) 0.1 Immature Gran # (Auto) 0.01 H Absolute Nucleated RBC 0.00 Immature Gran % 0 Nucleated RBC % 0 Sodium 139 Potassium 3.8 Chloride 105 Carbon Dioxide 23.2 Anion Gap 11 BUN 21 Creatinine 1.5 H Estim Creat Clear Calc 74.1 eGFR 59 L BUN/Creatinine Ratio 14 Glucose 126 H Calculated Osmolality 282 Calcium 9.5 Corrected Calcium 9.5 Total Bilirubin 2.0 H AST 43 H ALT 21 Alkaline Phosphatase 105 Total Protein 7.8 Albumin 4.1 Globulin 3.7 H Albumin/Globulin Ratio 1.1 L Impressions Impression: # Hematemesis secondary to esophageal variceal bleeding status post band ligation of the esophageal varices Continue octreotide infusion Advance diet as tolerated Assessment & Plan A&P Narrative # Acute upper GI bleed in the form of hematemesis in the setting of cirrhotic liver disease due to alcohol Plan Octreotide infusion at 50 mcg/h IV Protonix N.p.o. Serial CBC Consent obtained for fiberoptic esophagogastroduodenoscopy with possible therapeutic intervention possible biopsy under intravenous moderate sedation scheduled for tomorrow Thank you very much for the opportunity to participate in the care of this patient Time Spent With Patient Time: Total time spent is greater than 50% in coordination of care (as documented) at patient's floor/unit and/or counseling patient:
--- NOTE | 2024-09-18 15:52 | ESPR_ITS ---
Documentation for date of: 09/18/24 Subjective Subjective Interval history: Patient was seen and examined bedside. Underwent EGD yesterday and found grade 2 esophageal varices which were ligated [1 band] by Dr. Orourke and recommended to continue octreotide drip for total 5 days since the day of hospital admission. Otherwise patient is doing okay denies further episodes of hematemesis. Exam Vital Signs Temp Pulse Resp BP Pulse Ox O2 Del Method O2 Flow Rate 97.9 F 61 18 123/69 97 Room Air 2 09/18/24 12:09/18/24 12:00 09/18/24 12:09/18/24 12:09/18/24 12:09/18/24 12:09/17/24 19:35 Narrative Exam General: Awake. Lying comfortably on the bed. HEENT: Normocephalic, atraumatic, mucous membranes moist. Heart: Regular rate and rhythm, no murmurs. Lungs: Clear to auscultation with no wheezing or crackles. Abdomen: Soft, nondistended, nontender, positive bowel sounds. ?No guarding or rebound tenderness. Neurologic: Alert and oriented x3, no gross neurological deficit, and patient able to move all 4 extremities. Extremities: No edema. Skin: No rash or ecchymoses. Objective Labs 09/19/24 05:19 09/19/24 05:19 Labs: Laboratory Results - last 24 hr 09/18/24 04:25 WBC 5.0 RBC 4.61 Hgb 12.9 L Hct 39.0 L MCV 85 MCH 28.0 MCHC 33.1 RDW Std Deviation 45.9 H Plt Count 135 L Neut % (Auto) 41 Lymph % (Auto) 34 [place] % (Auto) 12 Eos % (Auto) 12 H Baso % (Auto) 1 Neut # (Auto) 2.1 Lymph # (Auto) 1.7 [place] # (Auto) 0.6 Eos # (Auto) 0.6 H Baso # (Auto) 0.1 Immature Gran # (Auto) 0.01 H Absolute Nucleated RBC 0.00 Immature Gran % 0 Nucleated RBC % 0 Sodium 139 Potassium 3.8 Chloride 105 Carbon Dioxide 23.2 Anion Gap 11 BUN 21 Creatinine 1.5 H Estim Creat Clear Calc 74.1 eGFR 59 L BUN/Creatinine Ratio 14 Glucose 126 H Calculated Osmolality 282 Calcium 9.5 Corrected Calcium 9.5 Total Bilirubin 2.0 H AST 43 H ALT 21 Alkaline Phosphatase 105 Total Protein 7.8 Albumin 4.1 Globulin 3.7 H Albumin/Globulin Ratio 1.1 L Quality Measures Quality Measures none Assessment & Plan Assessment Current Active Medications: Generic Name Dose Route Start Last Admin Trade Name Haileq PRN Reason Stop Dose Admin Acetaminophen 650 mg 09/16/24 17:21 Acetaminophen 325 Mg Tablet PO 10/16/24 17:20 Q6H PRN Fever >101.5 Pantoprazole Sodium 80 mg in 100 mls @ 10 mls/hr 09/16/24 15:59 09/18/24 09:46 Protonix/Ns 80mg Iv Premix IV 09/19/24 13:58 10 mls/hr Q10H JUAN Administration Octreotide Acetate 1,000 mcg/ 102 mls @ 5.1 mls/hr 09/16/24 15:59 09/18/24 09:46 Sodium Chloride IV 09/21/24 15:59 50 mcg/hr .Q20H JUAN 5.1 mls/hr Administration Protocol 50 MCG/HR Lactulose 20 gm 09/16/24 17:21 Lactulose Syrup 20 Gm/30 Ml Udc PO 10/16/24 17:20 X1 PRN CONSTIPATION Protocol Plan A 44 yr old male with a past medical history of cirrhosis s/p variceal ligation in 04/2024, CKD, ex alcohol, stopped 6 months ago per patient and ex methamphetamine abuse came to the hospital with chief complaints of blood in the vomitus. # History of decompensated alcoholic liver disease with portal hypertension # History of esophageal varices-s/p variceal ligation # Upper GI bleed, hematemesis, resolved -Patient has a history of decompensated alcoholic liver disease with esophageal varices s/p variceal ligation in 04/2024 -Last hospital admission was in April 2024 for similar complaints. -Patient presented to the hospital with complaints of salena blood in the vomitus. -Denies abdominal distention, melena, hematochezia, fever, abdominal pain. -Reported that he is compliant with his home medications, but did not remember the name of medications. -In the ED, blood pressure is 137/83 mmHg, pulse rate 59 bpm, respiratory rate 16/min, temperature 97.8 ?F, SpO2 96% with room air -Hemoglobin is 13 at the time of presentation, platelet count is 150. INR is 1.2, APTT is 31.7, total bilirubin is 1.4, AST 47, ALT 25 -In the ED, patient was started on octreotide drip and pantoprazole drip -On 09/17/2024, patient underwent endoscopy by Dr. Orourke and grade 2 esophageal varices found, one banding was placed Plan -Will continue octreotide drip to complete 5 days course. -Started on clear liquid diet and will advance as tolerated. -Will continue to monitor vitals and hemoglobin -Crossmatch showed O- blood # History of CKD, stage IIIa -Patient has a known history of chronic kidney disease -GFR is maintained between 55-60. -Patient is still at his normal baseline. -Denies changes in urine output. Plan -Will continue to monitor renal functions -Will renally dose medication and avoid nephrotoxic medications -Recommended to follow-up with [facility] on outpatient basis # Chronic smoker -Patient was smoking for about 10 to 15 years from now -Currently smoking 1 to 2 cigarettes/day -Counseled regarding the smoking cessation # Thrombocytopenia -Platelet count is 136 as of 09/17/2024. -Likely due to underlying liver disease. -Will continue to monitor CBC. Hospital Maintenance: Dispo: Med/tele DVT ppx: SCD GI ppx: Protonix Diet: clear liquid, will advance as tolerated IV lines: Peripheral Code status: Full code Patient plan of care was discussed with the attending physician, Dr. De Jesus. Augustine Voss, PGY1 Attending Provider Attestation/Addendum I reviewed labs, imaging, EKG, home medications and prior available records. Face to face evaluation was performed by me. I have personally examined the patient and discussed assessment and plan with the IM team. I reviewed the resident note and agree with the plan with exceptions as below. 44-year-old male with history of alcoholic liver cirrhosis who presented with a chief complaint of hematemesis. He was found to have upper GI bleed. Upper GI bleed: In the setting of history of alcoholic cirrhosis. Started IV Protonix and IV octreotide. Consulted GI for EGD/colonoscopy. Status post EGD that showed grade 2 esophageal varices status post banding. GI recommended octreotide for 5 days. Monitor H&H. Alcoholic cirrhosis: No recent alcohol drinking. Resume home medications. Outpatient follow-up with hepatology. CKD stage IIIa: Creatinine is close to baseline. Monitor kidney function. Avoid nephrotoxins. Renally dosed medications.
[2024-09-18] MEDS: MELATONIN 3 MG TABLET PO (23:46)
[2024-09-19] VITALS (10 sets, daily range): BP systolic 113–129; BP diastolic 66–85; PULSE 58–74; RESP 16–18; TEMP 36.3–36.9; O2SAT 95–98
[2024-09-19 05:49] LABS: Basophils # (Auto) 0.1 Thou/mm3 (0.0-0.2); Basophils % (Auto) 1 % (0-2.5); Eosinophils # (Auto) 0.6 Thou/mm3 (0.0-0.5); Eosinophils % (Auto) 9 % (0-10); Hemoglobin 12.9 g/dL (13.5-16.0); Immature Granulocytes % (Auto) 0 % (0-0); Immature Granulocytes Auto 0.01 Thou/mm3 (0.00-0.00); Lymphocytes % (Auto) 29 % (10-50); Mean Corpuscular HGB Conc 33.9 g/dl (31.0-37.0); Mean Corpuscular Hemoglobin 28.7 pg (25.0-35.0); Mean Corpuscular Volume 84 fL (80-100); Monocytes # (Auto) 0.9 Thou/mm3 (0.0-0.8); Monocytes % (Auto) 13 % (0-12); Neutrophils # (Auto) 3.2 Thou/mm3 (1.8-7.7); Neutrophils % (Auto) 48 % (37-80); Nucleated Red Blood Cell % 0 /100 WBC (0); Platelet Count 151 Thou/mm3 (140-440); RDW Standard Deviation 46.3 fL (35.1-43.9); White Blood Count 6.7 Thou/mm3 (3.8-10.6)
[2024-09-19] MEDS: PANTOPRAZOLE/NS 80MG IV PREMIX 80 MG/100 ML BAG 10 MG IV (06:05)
[2024-09-19 06:18] LABS: Alanine Aminotransferase 24 U/L (10-49); Albumin, Serum 4.2 gm/dL (3.5-5.0); Albumin/Globulin Ratio 1.1 (1.2-2.2); Alkaline Phosphatase 114 U/L (46-116); Anion Gap 10 (7-16); Aspartate Amino Transferase 40 U/L (0-34); BUN/Creatinine Ratio 12 Ratio (12-20); Bilirubin,Total 1.3 mg/dL (0.3-1.2); Blood Urea Nitrogen 19 mg/dL (9-23); Calcium 9.4 mg/dL (8.3-10.6); Calcium (Corrected) 9.4 mg/dL (8.5-10.1); Chloride 107 mMol/L (98-107); Creatinine (Component) 1.6 mg/dL (0.6-1.3); Estimated Creatinine Clearance 69.4 mL/min (>60); Globulin 3.7 gm/dL (2.3-3.5); Glucose 92 mg/dL (74-106); Osmolality,Calculated 281 (275-295); Potassium 3.6 mMol/L (3.4-5.1); Sodium 140 mMol/L (136-145); Total Protein 7.9 gm/dL (5.7-8.2); eGFR 54 See Note
[2024-09-19] MEDS: OCTREOTIDE ACET INJ 1,000 MCG in SODIUM CHLORIDE 0.9% 100 ML 5.1 MCG IV (07:56)
[2024-09-19] MEDS: CYANOCOBALAMIN INJ 1,000 mCg/ML VIAL 1000 MCG IM (10:49)
[2024-09-19] MEDS: IRON SUCROSE CPLX INJ 20 MG/ML VIAL 5 ML 200 MG IVP (10:55)
[2024-09-19] MEDS: VIT B12/Vit C/FA (Nephrovite) TABLET 1 TAB PO (10:57)
--- NOTE | 2024-09-19 11:49 | ESPR_ITS ---
Documentation for date of: 09/19/24 Subjective Subjective Interval history: Patient was seen and examined bedside. Underwent EGD on 09/17 - s/p band ligation of grade 2 esophageal varices Per GI recommendations, will continue octreotide drip until tomorrow to complete 5 day course Patient is tolerating diet, advanced from CLD -> low sodium GERD/PUD. He denies any new episodes of hematemesis. Completed 7 bags of IV Protonix 80mg since admission. Will start Protonix 40mg BID from 2100 tonight, oral vitamin B12, FA and iron supplementation in preparation for discharge. He is ambulating around the room. No abdominal discomfort or nausea at this time. Patient counseled, is in agreement with treatment plan. Exam Vital Signs Temp Pulse Resp BP Pulse Ox O2 Del Method O2 Flow Rate 97.8 F 63 16 119/69 97 Room Air 2 09/19/24 11:32 09/19/24 11:32 09/19/24 11:32 09/19/24 11:32 09/19/24 11:32 09/19/24 11:32 09/17/24 19:35 Narrative Exam Constitutional Alert, oriented x4, Overweight HEENT Vision grossly intact. Patent nares. Trachea midline. Respiratory Chest normal on inspection and clear to auscultation bilaterally. Cardiovascular S1 and S2 audible, RRR. No murmurs or carotid bruit. No gross JVD. Abdominal Soft, minimal epigastric tenderness on deep palpation, all other quadrants are benign. BS + Genitourinary No bladder tenderness, no flank pain. Normal to palpation. Musculoskeletal Extremities tone within normal limits. No LE edema. Neurological CN II - XII grossly intact. Extremity motor and sensation grossly intact. Skin Warm, dry and intact. No apparent lesions. B/L UE tattoos. Psychiatric Patient has a good affect, is cooperative. Objective Labs 09/20/24 05:32 09/20/24 05:32 Labs: Laboratory Results - last 24 hr 09/19/24 05:19 WBC 6.7 RBC 4.50 Hgb 12.9 L Hct 38.0 L MCV 84 MCH 28.7 MCHC 33.9 RDW Std Deviation 46.3 H Plt Count 151 Neut % (Auto) 48 Lymph % (Auto) 29 [place] % (Auto) 13 H Eos % (Auto) 9 Baso % (Auto) 1 Neut # (Auto) 3.2 Lymph # (Auto) 2.0 [place] # (Auto) 0.9 H Eos # (Auto) 0.6 H Baso # (Auto) 0.1 Immature Gran # (Auto) 0.01 H Absolute Nucleated RBC 0.00 Immature Gran % 0 Nucleated RBC % 0 Sodium 140 Potassium 3.6 Chloride 107 Carbon Dioxide 23.0 Anion Gap 10 BUN 19 Creatinine 1.6 H Estim Creat Clear Calc 69.4 eGFR 54 L BUN/Creatinine Ratio 12 Glucose 92 Calculated Osmolality 281 Calcium 9.4 Corrected Calcium 9.4 Total Bilirubin 1.3 H D AST 40 H ALT 24 Alkaline Phosphatase 114 Total Protein 7.9 Albumin 4.2 Globulin 3.7 H Albumin/Globulin Ratio 1.1 L Quality Measures Quality Measures none Assessment & Plan Assessment Current Active Medications: Generic Name Dose Route Start Last Admin Trade Name Freq PRN Reason Stop Dose Admin Acetaminophen 650 mg 09/16/24 17:21 Acetaminophen 325 Mg Tablet PO 10/16/24 17:20 Q6H PRN Fever >101.5 Pantoprazole Sodium 80 mg in 100 mls @ 10 mls/hr 09/16/24 15:59 09/19/24 06:05 Protonix/Ns 80mg Iv Premix IV 09/19/24 13:58 10 mls/hr Q10H JUAN Administration Octreotide Acetate 1,000 mcg/ 102 mls @ 3.06 mls/hr 09/19/24 11:00 Sodium Chloride IV 10/19/24 10:59 .Q24H JUAN Protocol 30 MCG/HR Lactulose 20 gm 09/16/24 17:21 Lactulose Syrup 20 Gm/30 Ml Udc PO 10/16/24 17:20 X1 PRN CONSTIPATION Protocol Pantoprazole Sodium 40 mg 09/19/24 21:00 Pantoprazole Inj 40 Mg Vial IVP 10/19/24 20:59 BID JUAN Vitamin B Complex/Vit C/Folic Acid 1 tab 09/19/24 09:00 09/19/24 10:57 Vit B12/Vit C/Fa (Nephrovite) Tablet PO 10/19/24 08:59 1 tab QDAY JUAN Administration Plan Mr Negro is a 44 yr old male with a past medical history of cirrhosis s/p variceal ligation in 04/2024, CKD, ex alcohol, stopped 6 months ago per patient and ex methamphetamine abuse came to the hospital with chief complaints of blood in the vomitus. 1. Hematemesis, UGIB - resolved 2. Esophageal varices s/p repeat band ligation on 09/17 3. Normocytic anemia 4. Mild Thrombocytopenia - resolved In the setting of 5. Liver cirrhosis, compensated 6. Chronic Portal hypertension 7. History of alcohol use disorder -Patient has a history of decompensated alcoholic liver disease with esophageal varices s/p variceal ligation in 04/2024 -Last hospital admission was in April 2024 for similar complaints. -Patient presented to the hospital with complaints of salena blood in the vomitus. Denies abdominal distention, melena, hematochezia, fever, abdominal pain. -Reported that he is compliant with his home medications, but did not remember the name of medications. -In the ED, blood pressure is 137/83 mmHg, pulse rate 59 bpm, respiratory rate 16/min, temperature 97.8 ?F, SpO2 96% with room air -Hemoglobin is 13 at the time of presentation, platelet count is 150. -Coag panel: INR is 1.2, APTT is 31.7, total bilirubin is 1.4, AST 47, ALT 25 -EGD 09/17/2024 : grade 2 esophageal varices found, one banding was placed MELD-Na : <17 points since admission, risk of 90 day mortality <2% Child-Arriaga : Class A , life expectancy 15-20 years Plan -Continue octreotide drip until 09/20, to complete 5 days course. -Advanced from clear liquid diet to GERD/PUD low sodium -No recent alcohol drinking. Recommened outpatient follow-up with hepatology. -Started on oral vitamin B12, FA and iron supplementation -Crossmatch showed O- blood, unlikely to need PRBCs, Hb trending 12-13 8. CKD, stage IIIa -Patient has a known history of chronic kidney disease -GFR is maintained between 55-60, Cr 1.6 (baseline 1.7-1.8) -Denies changes in urine output Plan -Will continue to monitor renal functions -Will renally dose medication and avoid nephrotoxic medications -Recommended outpatient nephrology referral 9. Chronic smoker -Patient was smoking for about 10 to 15 years from now -Currently smoking 1 to 2 cigarettes/day Plan -Counseled regarding smoking cessation, patient comprehends -PCP to start on nicotine patch and varenicline outpatient Hospital Maintenance: Dispo: Med/tele, anticipate discharge in 24 hours DVT ppx: SCDs only GI ppx: Protonix 40mg BID Diet: low sodium GERD/PUD Code status: Full code Plan of care discussed with attending Dr De Jesus , Anoop Oneill MD, PGY 2 Attending Provider Attestation/Addendum I reviewed labs, imaging, EKG, home medications and prior available records. Face to face evaluation was performed by me. I have personally examined the patient and discussed assessment and plan with the IM team. I reviewed the resident note and agree with the plan with exceptions as below. 44-year-old male with history of alcoholic liver cirrhosis who presented with a chief complaint of hematemesis. He was found to have upper GI bleed. Upper GI bleed: In the setting of history of alcoholic cirrhosis. Started IV Protonix and IV octreotide. Consulted GI for EGD/colonoscopy. Status post EGD that showed grade 2 esophageal varices status post banding. GI recommended octreotide for 5 days. Monitor H&H. Alcoholic cirrhosis: No recent alcohol drinking. Resume home medications. Outpatient follow-up with hepatology. CKD stage IIIa: Creatinine is close to baseline. Monitor kidney function. Avoid nephrotoxins. Renally dosed medications.
[2024-09-19] MEDS: OCTREOTIDE ACET INJ 1,000 MCG in SODIUM CHLORIDE 0.9% 100 ML 3.06 MCG IV (12:19)
--- NOTE | 2024-09-19 15:39 | PD.IMPROG ---
Documentation for date of: 09/19/24 Subjective Subjective Interval history: On octreotide infusion Exam Vital Signs Temp Pulse Resp BP Pulse Ox O2 Del Method O2 Flow Rate 97.8 F 63 16 119/69 97 Room Air 2 09/19/24 11:32 09/19/24 11:32 09/19/24 11:32 09/19/24 11:32 09/19/24 11:32 09/19/24 11:32 09/17/24 19:35 Objective Labs 09/19/24 05:19 09/19/24 05:19 Labs: Laboratory Results - last 24 hr 09/19/24 05:19 WBC 6.7 RBC 4.50 Hgb 12.9 L Hct 38.0 L MCV 84 MCH 28.7 MCHC 33.9 RDW Std Deviation 46.3 H Plt Count 151 Neut % (Auto) 48 Lymph % (Auto) 29 [place] % (Auto) 13 H Eos % (Auto) 9 Baso % (Auto) 1 Neut # (Auto) 3.2 Lymph # (Auto) 2.0 [place] # (Auto) 0.9 H Eos # (Auto) 0.6 H Baso # (Auto) 0.1 Immature Gran # (Auto) 0.01 H Absolute Nucleated RBC 0.00 Immature Gran % 0 Nucleated RBC % 0 Sodium 140 Potassium 3.6 Chloride 107 Carbon Dioxide 23.0 Anion Gap 10 BUN 19 Creatinine 1.6 H Estim Creat Clear Calc 69.4 eGFR 54 L BUN/Creatinine Ratio 12 Glucose 92 Calculated Osmolality 281 Calcium 9.4 Corrected Calcium 9.4 Total Bilirubin 1.3 H D AST 40 H ALT 24 Alkaline Phosphatase 114 Total Protein 7.9 Albumin 4.2 Globulin 3.7 H Albumin/Globulin Ratio 1.1 L Impressions Impression: # Status post band ligation of the esophageal varices # Hematemesis secondary to 1 Advance diet as tolerated continue to monitor CBC Continue octreotide Assessment & Plan A&P Narrative # Acute upper GI bleed in the form of hematemesis in the setting of cirrhotic liver disease due to alcohol Plan Octreotide infusion at 50 mcg/h IV Protonix N.p.o. Serial CBC Consent obtained for fiberoptic esophagogastroduodenoscopy with possible therapeutic intervention possible biopsy under intravenous moderate sedation scheduled for tomorrow Thank you very much for the opportunity to participate in the care of this patient Time Spent With Patient Time: Total time spent is greater than 50% in coordination of care (as documented) at patient's floor/unit and/or counseling patient:
[2024-09-19] MEDS: PANTOPRAZOLE INJ 40 MG VIAL IVP (21:06)
[2024-09-19] MEDS: MELATONIN 3 MG TABLET PO (21:37)
[2024-09-20] VITALS: BP 129/79; PULSE 58; PULSE 60; RESP 18; TEMP 36.8; O2SAT 99
[2024-09-20 04:00] VITALS: BP 139/76; PULSE 60; RESP 18; TEMP 36.9; O2SAT 99
[2024-09-20 06:17] LABS: Basophils % (Auto) 1 % (0-2.5); Eosinophils # (Auto) 0.7 Thou/mm3 (0.0-0.5); Eosinophils % (Auto) 11 % (0-10); Hematocrit 42.4 % (41.0-53.0); Hemoglobin 13.8 g/dL (13.5-16.0); Immature Granulocytes % (Auto) 0 % (0-0); Immature Granulocytes Auto 0.01 Thou/mm3 (0.00-0.00); Lymphocytes # (Auto) 1.9 Thou/mm3 (1.0-4.8); Lymphocytes % (Auto) 30 % (10-50); Mean Corpuscular HGB Conc 32.5 g/dl (31.0-37.0); Mean Corpuscular Hemoglobin 27.9 pg (25.0-35.0); Mean Corpuscular Volume 86 fL (80-100); Monocytes # (Auto) 0.7 Thou/mm3 (0.0-0.8); Monocytes % (Auto) 11 % (0-12); Neutrophils # (Auto) 2.9 Thou/mm3 (1.8-7.7); Neutrophils % (Auto) 47 % (37-80); Nucleated Red Blood Cell % 0 /100 WBC (0); Platelet Count 147 Thou/mm3 (140-440); RDW Standard Deviation 47.2 fL (35.1-43.9); Red Blood Count 4.94 Miln/mm3 (4.50-5.90); White Blood Count 6.3 Thou/mm3 (3.8-10.6)
[2024-09-20 06:34] LABS: Alanine Aminotransferase 24 U/L (10-49); Albumin, Serum 4.6 gm/dL (3.5-5.0); Albumin/Globulin Ratio 1.2 (1.2-2.2); Alkaline Phosphatase 132 U/L (46-116); Anion Gap 8 (7-16); Aspartate Amino Transferase 45 U/L (0-34); BUN/Creatinine Ratio 10 Ratio (12-20); Bilirubin,Total 1.4 mg/dL (0.3-1.2); Blood Urea Nitrogen 17 mg/dL (9-23); Carbon Dioxide 24.8 mMol/L (20.0-31.0); Chloride 105 mMol/L (98-107); Creatinine (Component) 1.7 mg/dL (0.6-1.3); Estimated Creatinine Clearance 65.3 mL/min (>60); Glucose 83 mg/dL (74-106); Osmolality,Calculated 276 (275-295); Sodium 138 mMol/L (136-145); Total Protein 8.6 gm/dL (5.7-8.2); eGFR 50 See Note
[2024-09-20 08:00] VITALS: BP 124/87; PULSE 61; RESP 17; TEMP 36.6; O2SAT 96
[2024-09-20 08:10] VITALS: PULSE 61
[2024-09-20] MEDS: VIT B12/Vit C/FA (Nephrovite) TABLET 1 TAB PO (08:28)
[2024-09-20] MEDS: PANTOPRAZOLE INJ 40 MG VIAL IVP (08:28)
[2024-09-20 11:50] VITALS: BP 136/90; PULSE 66; RESP 16; TEMP 36.1; O2SAT 99
[2024-09-20 12:00] VITALS: PULSE 63
--- NOTE | 2024-09-20 13:14 | PC.NURSE ---
Patient called and stated that he wants to leave, called hospitalist team C, Dr Servin came and spoke to the patient, patient decided to stay until medically cleared.
--- NOTE | 2024-09-20 13:58 | PD.IMPROG ---
Documentation for date of: 09/20/24 Subjective Subjective Interval history: Case discussed with the internal medicine team Okay to discharge patient home I will follow him up in 2 weeks in the office Exam Vital Signs Temp Pulse Resp BP Pulse Ox O2 Del Method O2 Flow Rate 97.0 F 66 16 136/90 H 99 Room Air 2 09/20/24 11:50 09/20/24 11:50 09/20/24 11:50 09/20/24 11:50 09/20/24 11:50 09/20/24 11:50 09/20/24 00:00 Objective Labs 09/20/24 05:32 09/20/24 05:32 Labs: Laboratory Results - last 24 hr 09/20/24 05:32 WBC 6.3 RBC 4.94 Hgb 13.8 Hct 42.4 MCV 86 MCH 27.9 MCHC 32.5 RDW Std Deviation 47.2 H Plt Count 147 Neut % (Auto) 47 Lymph % (Auto) 30 [place] % (Auto) 11 Eos % (Auto) 11 H Baso % (Auto) 1 Neut # (Auto) 2.9 Lymph # (Auto) 1.9 [place] # (Auto) 0.7 Eos # (Auto) 0.7 H Baso # (Auto) 0.0 Immature Gran # (Auto) 0.01 H Absolute Nucleated RBC 0.00 Immature Gran % 0 Nucleated RBC % 0 Sodium 138 Potassium 4.0 Chloride 105 Carbon Dioxide 24.8 Anion Gap 8 BUN 17 Creatinine 1.7 H Estim Creat Clear Calc 65.3 eGFR 50 L BUN/Creatinine Ratio 10 L Glucose 83 Calculated Osmolality 276 Calcium 10.0 Corrected Calcium 10.0 Total Bilirubin 1.4 H AST 45 H ALT 24 Alkaline Phosphatase 132 H Total Protein 8.6 H Albumin 4.6 Globulin 4.0 H Albumin/Globulin Ratio 1.2 Impressions Impression: # Upper GI bleed requiring band ligation of esophageal varices Okay to discharge patient home Follow-up in my office in 2 weeks Assessment & Plan A&P Narrative # Acute upper GI bleed in the form of hematemesis in the setting of cirrhotic liver disease due to alcohol Plan Octreotide infusion at 50 mcg/h IV Protonix N.p.o. Serial CBC Consent obtained for fiberoptic esophagogastroduodenoscopy with possible therapeutic intervention possible biopsy under intravenous moderate sedation scheduled for tomorrow Thank you very much for the opportunity to participate in the care of this patient Time Spent With Patient Time: Total time spent is greater than 50% in coordination of care (as documented) at patient's floor/unit and/or counseling patient:
--- NOTE | 2024-09-20 14:03 | PC.NURSE ---
Discharge needs met, patient left with family with all belongings.
--- NOTE | 2024-09-20 16:01 | ESDS_ITS ---
<Statement entered by Anoop Oneill MD - 09/21/24 07:47> Patient was examined with the team including attending physician. Note reviewed, I agree with the discharge plan as documented. - Anoop Oneill MD, PGY 2 Planned Discharge Date 09/20/24 DS: Providers Provider Date of admission: 09/16/24 17:21 Primary care physician: Johana Blakely MD Admitting Provider: Nixon De Jesus MD Attending Provider on Admission: Nixon De Jesus MD Consults: 09/16/24 15:53 Consult to Gastroenterology Stat Comment: Consulting Provider: Abigail Orourke Attending Provider on DC: Augustine Voss MD Discharging Provider: Augustine Voss MD DS: Diagnosis Problem List Completed Was Problem List Reviewed/Reconciled?: Yes Hospital Course Hospital Course Hospital course: Marky Harmon is a 44-year-old male with past medical history of cirrhosis s/p esophageal variceal ligation in 04/2024, CKD, previous alcoholic, stopped 6 months ago per patient and past history of methamphetamine abuse presented to the hospital with chief complaints of hematemesis and admitted for further management. Vitals are stable at the time of admission. Labs at the time of admission is significant for hemoglobin 13, INR 1.2, BUN 20, creatinine 1.6. In the hospital patient was started on pantoprazole and octreotide drip. Dr. Orourke was consulted and EGD was done which showed grade 2 esophageal varices s/p variceal band ligation [1 band]. Patient was pending to complete octreotide drip for 10 more hours as per protocol but as the patient wants to go home Dr. Orourke was consulted and recommended that patient was okay to go to home from his side. Patient was discharged to home with the following medications and recommendations -Follow-up with PCP within 1 week of discharge. If you do not have appointment, please follow-up with the [facility] with Dr. Voss. Call [phone] to make an appointment. -Follow up with Dr. Orourke and Dr. Guidry within 1 week of discharge -Take the rest of your home medications as prescribed. -Return to ED if symptoms persist or return # History of alcoholic liver disease with portal hypertension # History of esophageal varices-s/p variceal ligation # Upper GI bleed, hematemesis, resolved # History of CKD, stage IIIa # Chronic smoker Patient plan of care was discussed with the attending physician, Dr. De Jesus and senior resident Dr. Nino Voss, PGY1 Time Spent with Patient Time attestation: Total time spent providing and/or coordinating discharge services: Time spent: Greater than 30 minutes Exam Vital Signs Temp Pulse Resp BP Pulse Ox O2 Del Method O2 Flow Rate 97.0 F 63 16 136/90 H 99 Room Air 2 09/20/24 11:50 09/20/24 12:00 09/20/24 11:50 09/20/24 11:50 09/20/24 11:50 09/20/24 11:50 09/20/24 00:00 Narrative Exam General: Awake. obese HEENT: Normocephalic, atraumatic, mucous membranes moist. Heart: Regular rate and rhythm, no murmurs. Lungs: Clear to auscultation with no wheezing or crackles. Abdomen: Soft, nondistended, nontender, positive bowel sounds. ?No guarding or rebound tenderness. Neurologic: Alert and oriented x3, no gross neurological deficit, and patient able to move all 4 extremities. Extremities: No edema. Skin: No rash or ecchymoses. Discharge Plan Plan Patient Disposition: HOME (Self Care) Patient condition on transfer: Stable Care Plan Goals: -Follow-up with PCP within 1 week of discharge. If you do not have appointment, please follow-up with the [facility] with Dr. Voss. Call [phone] to make an appointment. -Follow up with Dr. Orourke and Dr. Guidry within 1 week of discharge -Take the rest of your home medications as prescribed. -Return to ED if symptoms persist or return Prescriptions/Referrals Prescriptions/Med Rec: New vitamin [id number] acid 2,500-400 mcg tablet,disintegrating 1 tab PO DAILY 30 Days Qty: 30 0RF Continued carvedilol [Coreg] 6.25 MG tablet 6.25 mg PO BID Qty: 60 furosemide [Lasix] 20 mg Tablet 20 mg PO QAM PRN (Reason: Edema) triamcinolone acetonide 0.5 % ointment See Rx Instructions .ROUTE .COMPLEX Patient Comments: APPLY THIN LAYER TOPICALLY TO THE AFFECTED AREA TWICE DAILY Rx Instructions: apply a thin layer topically to the affected area twice a day propranolol 10 mg tablet 10 mg PO 3XD Patient Comments: TAKE 1 TABLET BY MOUTH THREE TIMES DAILY metoclopramide HCl 5 mg tablet 5 mg PO 4XD Patient Comments: TAKE 1 TABLET BY MOUTH 30 MINUTES BEFORE MEALS AND AT BEDTIME pantoprazole 40 mg tablet,delayed release (DR/EC) 40 mg PO QDAY Patient Comments: TAKE 1 TABLET BY MOUTH EVERY DAY hydroxyzine HCl 25 mg tablet 25 mg PO QID Hold Instructions: Resume on 07/16/24. Patient Comments: TAKE 1 TABLET BY MOUTH EVERY 4 TO 6 HOURS NEEDED FOR ITCHING venlafaxine 37.5 mg capsule,extended release 24hr 37.5 mg PO QDAY Patient Comments: TAKE 1 CAPSULE BY MOUTH EVERY DAY WITH FOOD gabapentin 300 mg capsule 300 mg PO HS Patient Comments: TAKE 1 CAPSULE BY MOUTH EVERY NIGHT AT BEDTIME ferrous sulfate 325 mg (65 mg iron) tablet,delayed release (DR/EC) 325 mg PO QDAY Patient Comments: TAKE 1 TABLET BY MOUTH TWICE A DAY WITH FOOD AND ORANGE JUICE cholestyramine (with sugar) 4 gram powder in packet 1 ea PO QDAY Patient Comments: DISSOLVE 1 PACKET IN 2-6 OZ OF WATER OR NONCARBONATED AND DRINK BY MOUTH TWICE DAILY BEFORE MEALS Referrals: Johana Blakely MD [Primary Care Provider] - Patient/Caregiver Discharge Instructions Discharge Activity: resume usual activities Education Materials: Bleeding Gastrointestinal, Understanding Cirrhosis, Anatomy of the Digestive System Print Language: [place]an Stand Alone Forms: [employer] Award Info., Patient Portal Info Letter Discharge Order Discharge Orders: Discharge (Routine); Ordered 09/20/24 Ordered By: Anoop Oneill Quality Discharge Quality Measures VTE prophylaxis Attestestation MD Attestation I reviewed labs, imaging, EKG, home medications and prior available records. Face to face evaluation was performed by me. I have personally examined the patient and discussed assessment and plan with the IM team. I reviewed the resident note and agree with the plan with exceptions as below. 44-year-old male with history of alcoholic liver cirrhosis who presented with a chief complaint of hematemesis. He was found to have upper GI bleed. Upper GI bleed: In the setting of history of alcoholic cirrhosis. Started IV Protonix and IV octreotide. Consulted GI for EGD/colonoscopy. Status post EGD that showed grade 2 esophageal varices status post banding. GI recommended octreotide for 5 days. Monitor H&H as outpatient. Alcoholic cirrhosis: No recent alcohol drinking. Resume home medications. Outpatient follow-up with hepatology. CKD stage IIIa: Creatinine is close to baseline. Monitor kidney function as outpatient. Avoid nephrotoxins. Renally dosed medications. Time spent is 40 minutes. More than 50% of the time was spent on patient education and coordination of care.
== END 2024-09-20 13:58 | disposition home or self-care (01) | DRG 432 ==
LOC: SERX 17:41 → SERHOLD 17:42 → S3NX 20:58
PROVIDERS: Specialist; Admitting Provider Student in an Organized Health Care Education/Training Program; Emergency Provider Emergency Medicine; PCP Internal Medicine; Visit Provider Student in an Organized Health Care Education/Training Program
PROC: 06L38CZ Occlusion of Esophageal Vein with Extraluminal Device, Via Natural or Artificial Opening Endoscopic (ICD-10-PCS; CPT 43239; principal; 2024-09-17 16:30)
DX: K70.30 Alcoholic cirrhosis of liver without ascites (principal); I85.11 Secondary esophageal varices with bleeding; K76.6 Portal hypertension; N18.31 Chronic kidney disease, stage 3a; F17.210 Nicotine dependence, cigarettes, uncomplicated; D69.6 Thrombocytopenia, unspecified; D63.1 Anemia in chronic kidney disease
CPT/HCPCS: 36415; 80053; 83036; 85025; 85610; 85730; 86850; 86900; 86901; 93225; 96365; 99291; A4649; J0696; J1200; J1756; J2250; J2354; J2470; J3010; J3420; J3490; J7050; A9270

== ENCOUNTER 2024-10-08 13:23 | Outpatient (AMB) | payer OTHER, MEDICAID, SELFPAY ==
--- NOTE | 2024-10-08 13:49 | PD.RESCLINIC ---
Vital Signs 10/08/24 13:50 Height 1.73 m Height Method Stated Weight 119.295 kg Weight Measurement Method Standing Scale BMI 39.9 BP 120/73 Blood Pressure Source Automatic Cuff Blood Pressure Location Left Upper Arm Position Sitting Respiration 18 Pulse 60 Pulse Source Monitor Temp 98.2 F Temp Source Oral Pulse Oximetry (%) 96 Oxygen Delivery Method Room Air Allergies/Meds Allergies & Medications Allergies No Known Allergies Allergy (Verified 10/08/24 13:51) Medication Reconciliation carvedilol 6.25 mg tablet (Coreg) 6.25 mg PO BID #60 tabs 08/09/16 [History Confirmed 10/08/24] furosemide 20 mg tablet (Lasix) 20 mg PO QAM PRN Edema 05/08/24 [History Confirmed 10/08/24] hydroxyzine HCl 25 mg tablet 25 mg PO QID 05/08/24 [History Confirmed 10/08/24] metoclopramide HCl 5 mg tablet 5 mg PO 4XD 05/08/24 [History Confirmed 10/08/24] pantoprazole 40 mg tablet,delayed release 40 mg PO QDAY 05/08/24 [History Confirmed 10/08/24] propranolol 10 mg tablet 10 mg PO 3XD 05/08/24 [History Confirmed 10/08/24] triamcinolone acetonide 0.5 % topical ointment See Rx Instructions .Route .COMPLEX 05/08/24 [History Confirmed 10/08/24] cholestyramine (with sugar) 4 gram powder for susp in a packet 1 ea PO QDAY 07/15/24 [History Confirmed 10/08/24] ferrous sulfate 325 mg (65 mg iron) tablet,delayed release 325 mg PO QDAY 07/15/24 [History Confirmed 10/08/24] gabapentin 300 mg capsule 300 mg PO HS 07/15/24 [History Confirmed 10/08/24] venlafaxine 37.5 mg capsule,extended release 24 hr 37.5 mg PO QDAY 07/15/24 [History Confirmed 10/08/24] vitamin B12 2,500 mcg-folic acid 400 mcg disintegrating tablet 1 tab PO DAILY 1 month #30 tabs 09/20/24 [Rx Confirmed 10/08/24] MA Intake Visit Data Collection New Patient or Established: Established Patient (seen at [facility] within 3 years) Seen by Clinical Staff ONLY (RN/MA): No Reason for Visit:: follow up fom the hospital discharge Pain Present Currently: No 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 Discussed the benefits of quitting smoking with patient. Encouraged patient to quit smoking and provided Cessation assistance materials and resources. Tobacco Use: Cigarette Years smoked: 10 Are you interested in quitting?: Yes Would you like additional Smoking Cessation Counseling?: No Immunization / Flu Flu Vaccine in the Last 12 Months: No Flu Vaccine Exclusion Criteria: Refused by Patient Past Medical History Past Medical History NEUROLOGIC: Negative Neurological Disorders or Seizures CARDIAC: Positive Cardiac Disorders, Congestive Heart Failure and Hypertension RESPIRATORY: Negative Chronic Obstructive Pulmonary Disease (COPD) or Asthma GASTROINTESTINAL: Positive Gastrointestinal Disorders, Cirrhosis, Gastrointestinal Bleed and Esophageal Varices GENITOURINARY: Positive Chronic Kidney Disease; Negative Genitourinary Disorders ENDOCRINE: Negative Endocrine Disorders, Diabetes Mellitus Type 1 or Diabetes Mellitus Type 2 HEMATOLOGIC: Negative Blood Disorders or Sickle Cell Disease PSYCHO/SOCIAL: Positive Recreational Drug Use and Anxiety OTHER HISTORY: Positive Blood Transfusions and Blood Transfusion Reaction (possible); Negative Falls, Anesthesia Reactions, Chicken Pox, Measles, Mumps or Cancer Family History FAMILY HISTORY: Positive Family Cardiac Disorders and Family Cancer Surgical History SURGICAL: Positive Joint Replacement (LEFT KNEE) and Arthroscopy; Negative Cardiac Surgery, Endocrine Surgery, Abdominal Surgery or Neurologic Surgery Social History SMOKING STATUS: Smoking status: Current every day smoker ALCOHOL: Alcohol Intake: Never ALCOHOL FREQUENCY: Alcohol Intake Frequency: 0-2 Drinks per Day HOUSING: Housing: House LIVES WITH: Lives With: Family 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 Social History Living Situation History Housing: House Housing Other:: pt lives with and kids Tobacco History Smoking Status: Current every day smoker Alcohol History Alcohol Intake: Never Alcohol Intake Frequency: 0-2 Drinks per Day Substance Use History Substance Use: meth Domestic Abuse History Do You Feel Safe at Home: Yes Review of Systems Report any current symptoms Only answer those that you have currently: Past Medical History Past Medical History Have you ever been diagnosed with any of the following: Neurological Problems Seizures: No Cardiology Problems Congestive Heart Failure: Yes Hypertension: Yes Respiratory Problems Chronic Obstructive Pulmonary Disease (COPD): No Asthma: No Stomache/Intestinal Problems Cirrhosis: Yes Gastrointestinal Bleed: Yes Esophageal Varices: Yes Genital/Urinary Problems Chronic Kidney Disease: Yes Endocrine Problems Diabetes Mellitus Type 1: No Diabetes Mellitus Type 2: No Blood Problems Sickle Cell Disease: No Psychologic Problems Recreational Drug Use: Yes Anxiety: Yes Other Problems Falls: No Blood Transfusions: Yes Blood Transfusion Reaction: Yes (possible) Anesthesia Reactions: No Chicken Pox: No Measles: No Mumps: No Cancer: No History of Present Illness HPI Narrative Marky Harmon is a 44-year-old male with past medical history of cirrhosis s/p esophageal variceal ligation in 04/2024, CKD, previous alcoholic, stopped 6 months ago per patient and past history of methamphetamine abuse presented to the hospital with chief complaints of hematemesis, underwent endoscopy and found to have grade 1 esophageal varices and recently discharged from the hospital on 09/20/2024 came for follow-up visit and to establish primary care. Denies any other complaints and also endorsed that he is compliant with all his medications. Review of Systems Review of Systems Narrative Review of Systems: Constitutional: No Weight Change, No Fever, No Chills, No Night Sweats, No Fatigue, No Malaise ENT/Mouth: No Hearing Changes, No Ear Pain, No Nasal Congestion, No Sinus Pain, No Hoarseness, No sore throat, No Rhinorrhea, No Swallowing Difficulty Eyes: No Eye Pain, No Swelling, No Redness, No Foreign Body, No Discharge, No Vision Changes Cardiovascular: No Chest Pain, No SOB, No PND, No Dyspnea on Exertion, No Orthopnea, No Edema, No Palpitations Respiratory: No Cough, No Sputum, No Wheezing, No Dyspnea Gastrointestinal: No Nausea, No Vomiting, No Diarrhea, No Constipation, No Pain, No Heartburn, No Anorexia, No Dysphagia, No Hematochezia, No Melena, No Flatulence, No Jaundice Genitourinary: No Dysuria, No Urinary Frequency, No Hematuria, No Urinary Incontinence, No Urgency, No Flank Pain, No Urinary Flow Changes, No Hesitancy Musculoskeletal: No Arthralgias, No Myalgias, No Joint Swelling, No Joint Stiffness, No Back Pain, No Neck Pain, No Injury History Skin: No Skin Lesions, No Pruritis Neuro: No Weakness, No Numbness, No Paresthesias, No Loss of Consciousness, No Syncope, No Dizziness, No Headache, No Coordination Changes, No Recent Falls Objective/Exam Narrative Physical exam: General: Awake. HEENT: Normocephalic, atraumatic, mucous membranes moist. Heart: Regular rate and rhythm, no murmurs. Lungs: Clear to auscultation with no wheezing or crackles. Abdomen: Soft, nondistended, nontender, positive bowel sounds. ?No guarding or rebound tenderness. Neurologic: Alert and oriented x3, no gross neurological deficit, and patient able to move all 4 extremities. Extremities: No edema. Skin: No rash or ecchymoses. Assessment & Plan Diagnosis / Problem List (1) Chronic kidney disease (CKD) stage G3a/A1, moderately decreased glomerular filtration rate (GFR) between 45-59 mL/min/1.73 square meter and albuminuria creatinine ratio less than 30 mg/g: Status: Acute Assessment & Plan: Patient is known to have CKD stage III since 2023 and GFR is maintaining between 55-60 since then Likely due to combined NSAID and methamphetamine abuse Plan: -Educated about NSAID and with amphetamine abstinence -Referred to Dr. Guidry to establish care -Renal ultrasound, urine albumin protein creatinine ratio and lipid profile was ordered. (2) Cirrhosis: Status: Acute Qualifiers: Ascites presence: without ascites Hepatic cirrhosis type: alcoholic cirrhosis Qualified Code(s): K70.30 - Alcoholic cirrhosis of liver without ascites Assessment & Plan: -Patient was noted to have alcoholic liver cirrhosis with esophageal varices since 12/2023 -Admitted with variceal bleed in 04/2024 and in 09/2024 -Denies further episodes of hematemesis, hematochezia and melena Plan: -Recommended to continue carvedilol as patient is also having HFpEF -Lasix 20 Mg as needed -Patient has been abstinent from alcohol abuse in 6 months -Child function and MELD score did not show any necessity of liver transplant for now (3) GI bleed: Status: Resolved Assessment & Plan: -Patient was found to have esophageal varices during his hospital admission in 04/2024 -Patient was admitted in 09/2024 for hematemesis and found to have grade 1 esophageal varices and no intervention was done as the varices were not amenable to ligating Plan: -Continue carvedilol (4) (HFpEF) heart failure with preserved ejection fraction: Status: Acute Assessment & Plan: -Patient had history of heart failure and used to use Entresto -Echo done in 04/2024 showed Normal LV size and function. Estimated EF 50% Normal RV size and function. Mild LA dilatation Mild MAC. Mild MR, Trace TR. -After abstaining from alcohol and meth, patient does not have any symptoms of heart failure or fluid overload Plan: -As patient is already following with Dr. Asif, he recommended to follow-up with him -Also recommend to continue carvedilol -Continued to be abstinent from alcohol and meth Orders: Orders Lipid Panel 10/08/24 N18.31 - Chronic kidney disease, stage 3a Microalbumin, Ur Rnd w Creat 10/08/24 N18.31 - Chronic kidney disease, stage 3a US renal BI 10/08/24 N18.31 - Chronic kidney disease, stage 3a Referrals Nephrology N18 - Chronic kidney disease, stage 3a Additional Assessment Attending note: I, Hermes Hernández MD, attest that I was physically present for the [place]amilla portions of the service and evaluated the patient with the resident and I reviewed and discussed the case with the resident and agree with the resident's findings and plans of care as documented above. New patient to clinic. Follow-up from recent hospitalization. History of alcohol abuse, abstinent for 6 months. Past history of methamphetamine abuse. Now with cirrhosis, had esophageal variceal ligation in April 2024. Upper endoscopy in July found grade 3 varices with 1 band placed. There was nonerosive gastritis along with a duodenal ulcer with a clean ulcer base. Patient remained on a PPI. Recent hospitalization for hematemesis. Found on endoscopy to have grade 1 esophageal varices. Patient is on carvedilol and Lasix. Afebrile with stable vital signs. Noted to have CKD stage III. We will check a renal ultrasound, protein creatinine ratio, lipid profile. Given the level dysfunction, we will make a referral to establish with nephrology. Patient had history of heart failure with preserved ejection fraction secondary to substance abuse. With abstinence from the substances and medical therapy, most recent echocardiogram with ejection fraction of 50%. No symptoms of fluid overload at this time. We will continue carvedilol and Lasix. Follow-up in 1 to 2 months. Hermes Hernández MD Physician Billing New Patient New Patient: E/M Level 3-CPT 77057 Office Procedures [facility] Level of Care Nursing/Assessment Patient Status: Established Patient Nursing Assessment/Reassessment: Medication Reconciliation, Update PMH in EMR and Vital Signs Coordination of Care: Complex Care and Chronic Disease 1-5, Consent,records obtained, informed consent, Education Simp Pt/Fam and Staff clarify orders Established Patient Charge Established Patient Point Assignment: 85 Established Patient Point Charge: EP Level 3 (80-115)
[2024-10-08 13:50] VITALS: BP 120/73; PULSE 60; RESP 18; TEMP 36.8; O2SAT 96; BMI 39.9
== END 2024-10-08 14:49 | disposition home or self-care (01) ==
LOC: HODAHC 13:23
PROVIDERS: Supervising Provider Internal Medicine
DX: N18.31 Chronic kidney disease, stage 3a (principal); K74.60 Unspecified cirrhosis of liver; I50.20 Unspecified systolic (congestive) heart failure
CPT/HCPCS: 99213; G0463

== ENCOUNTER → 2024-11-03 | Outpatient (CLI) | payer OTHER, MEDICAID, SELFPAY ==
--- NOTE | 2024-11-03 12:30 | XR_ITS ---
Examination: Retroperitoneal ultrasound, complete Technique: Multiple high resolution grayscale images of the retroperitoneum obtained, including kidneys and bladder. Exam date and time:November 03, 2024 1226 hours INDICATIONS: Diagnosis chronic kidney disease stage III FINDINGS: Right kidney 11.7 x 5.0 x 5.0 cm cortex 1.9 cm Left kidney 12.6 x 5.3 x 4.8 cm renal cortex 2.3 cm Mild bilateral renal parenchymal scar formation No hydronephrosis No bladder mass or bladder calculi Bladder prevoid volume 81 cc Prostate 3.3 x 2.9 x 4.0 cm volume 20.2 cc IMPRESSION: Mild bilateral renal parenchymal scar formation No hydronephrosis
== END | disposition home or self-care (01) ==
PROVIDERS: PCP Internal Medicine
DX: N28.89 Other specified disorders of kidney and ureter (principal); N18.31 Chronic kidney disease, stage 3a
CPT/HCPCS: 76770

== ENCOUNTER 2025-06-22 08:05 | Day surgery (SDC) | payer OTHER, SELFPAY ==
[2025-06-22] VITALS (11 sets, daily range): BP systolic 106–136; BP diastolic 74–93; PULSE 53–61; RESP 12–20; TEMP 36.8–37; O2SAT 96–99; BMI 36.1
[2025-06-22] MEDS: MIDAZOLAM INJ 1 MG/ML VIAL 2 ML (ASD USE ONLY) 2 MG IVP (09:25)
[2025-06-22] MEDS: BENZOCAINE 20% (Hurricaine) SPRAY 1 DOSE TOP (09:25)
[2025-06-22] MEDS: SODIUM CHLORIDE 0.9% 500 ML 500 ML 20 ML IV (09:25)
[2025-06-22] MEDS: fentaNYL CIT INJ 50 mCg/ML AMP 2ML (ASD USE ONLY) IVP (09:27)
== END 2025-06-22 10:45 | disposition home or self-care (01) ==
PROVIDERS: PCP Physician Assistant; Referring Provider Specialist; Visit Provider Specialist
PROC: 0DBE8ZX Excision of Large Intestine, Via Natural or Artificial Opening Endoscopic, Diagnostic (ICD-10-PCS; CPT 45380; principal; 2025-06-22 09:00)
PROC: (CPT 43239; 2025-06-22 09:00)
DX: K64.0 First degree hemorrhoids (principal); K70.9 Alcoholic liver disease, unspecified; I85.11 Secondary esophageal varices with bleeding
CPT/HCPCS: 45330; A4649; J1200; J2250; J3010; J7999; A9270